=== PATIENT | male | born 1980 | race Caucasian/White ===

== ENCOUNTER 2023-10-19 07:24 | Outpatient (CLI) | payer MEDICAID, SELFPAY ==
--- NOTE | 2023-10-19 07:15 | RT.EKG_ITS ---
APPROVED REPORT Exam: Resting ECG Reason for Exam: [employer] USE MEDICATION Patient Location: O HR:69 bpm ECG Measurements Heart Rate 69 AXIS AR 154 P 73 QRSd 109 QRS 58 QT 429 T 68 QTc 460 Conclusion Sinus rhythm...normal P axis, V-rate 50- 99 Left atrial enlargement...P, P'>60mS, <-0.15mV V1 I have reviewed and interpreted ECG and agree with software generated interpretation.
== END 2023-10-19 07:25 | disposition home or self-care (01) ==
LOC: CARDOPNVT 07:24
PROVIDERS: Visit Provider Family Medicine
DX: Z79.899 Other long term (current) drug therapy (principal)
CPT/HCPCS: 93005; 93010

== ENCOUNTER → 2024-01-18 04:54 | Outpatient (CLI) | payer MEDICAID, SELFPAY ==
--- NOTE | 2024-01-18 | DI.US_ITS ---
Exam(s) US LOWER EXTREMITY VENOUS LT EXAM: US LOWER EXTREMITY VENOUS LT CLINICAL HISTORY: Pain in lt lower leg, ? DVT TECHNIQUE: Grayscale, color, and doppler imaging of the deep venous system of the left lower extremi ty was performed. COMPARISON: No exams were available for comparison FINDINGS: There is no evidence of intraluminal thrombus and there is normal compression and augmentation demons trated within the common femoral vein, femoral vein, and popliteal vein. In the ipsilateral calf the interrogated veins also exhibit normal compression/ augmentation properti es. The ipsilateral saphenofemoral junction is patent. IMPRESSION: 1. No evidence of DVT in the left lower extremity. DATA REPOSITORY:
== END ==
PROVIDERS: Visit Provider Physician Assistant Medical
DX: M79.662 Pain in left lower leg (principal)
CPT/HCPCS: 93971

== ENCOUNTER 2024-04-25 07:33 | Emergency (ER) | payer MEDICAID, SELFPAY ==
[2024-04-25 07:37] VITALS: BP 112/80; PULSE 67; RESP 16; TEMP 36.5; O2SAT 97
--- NOTE | 2024-04-25 07:52 | W.ED.GENAD ---
Discharge Plan Disposition Patient Disposition: Home Discharge Details Clinical Impression: Headache Primary Care Provider: Unknown,Unknown ED Provider: Melo Velazco Home Meds and New Rx's Prescriptions: No Action methadone 10 mg/5 mL solution 160 mg PO DAILY Patient Comments: @ [facility], self reported not verified Excedrin Migraine 250-250-65 mg tablet 2 tab PO Q6H PRN Discharge Instructions Instructions: Headache, Adult ED Additional Instructions: make sure to drink lots of water can take motrin in additional to the excedrin migraine. try not to take these medicines more than 3 days per week. if you have persistent headaches you can try over the counter MAGNESIUM OXIDE daily return to ED if you have severe headache, fever, neck pain Stand Alone Forms: Work Release HPI General Date/Time Provider Initiated Documentation: 04/25/24 07:48. Limitations to Documentation: no limitations. Information obtained by: patient. HPI Narrative: 43-year-old gentleman with past medical history of opiate use disorder presents for evaluation of headaches. He reports that he has been having headache for the last 6 days. Reports that it feels like pressure behind his eyes and sinus pressure. Mild nausea with no vomiting. No fever. Denies any neck stiffness. Reports that he does have some sensitivity to light. No issues with sound. Reports occasional prior headaches, no significant history of severe migraines. Does report a family history of migraine headaches. Related Data Home Medications ?Medication ?Instructions ?Recorded ?Confirmed tytxwqy-xbevrekvtdhpk-[id number] 250 2 tab PO Q6H PRN 04/25/24 04/25/24 mg-250 mg-65 mg tablet (Excedrin Migraine) methadone 10 mg/5 mL oral solution 160 mg PO DAILY 04/25/24 04/25/24 Allergies Allergy/AdvReac Type Severity Reaction Status Date / Time codeine Allergy Swelling/Ed Verified 04/25/24 07:39 elsy latex Allergy Skin Rash Verified 04/25/24 07:39 General Stated Complaint: Headache KIMBERLYN: 3 Exam Narrative Exam Narrative: Review of Systems: All systems reviewed & are unremarkable except as noted in HPI and below Well-developed, no acute distress NCAT PERRL, normal conjunctiva , extraocular movements intact Posterior oropharynx without erythema tonsillar enlargement or exudate No significant cervical adenopathy No meningeal symptoms RRR no murmur Unlabored respiratory effort clear bilaterally Nondistended abdomen Extremities w/o deformity, no cyanosis, no edema No rashes or lesions. no focal neurologic deficits normal sensation and strength throughout, normal gait Appropriate mood and affect Course Vital Signs Vital signs: Vital Signs Temperature 36.5 C 04/25/24 07:37 Pulse 67 04/25/24 07:37 Respiratory Rate 16 04/25/24 07:37 Blood Pressure 112/80 04/25/24 07:37 Pulse Oximetry 97 04/25/24 07:37 Temperature 36.5 C 04/25/24 07:37 Temperature Source Skin 04/25/24 07:37 Pulse 67 04/25/24 07:37 Respiratory Rate 16 04/25/24 07:37 Respiratory Effort Normal, Non-Labored 04/25/24 07:40 Blood Pressure 112/80 04/25/24 07:37 Blood Pressure Position Sitting 04/25/24 07:37 Pulse Oximetry 97 04/25/24 07:37 Oxygen Delivery Method Room Air 04/25/24 07:37 Oxygen Flow Rate 0 04/25/24 07:37 Pain Level 7 04/25/24 07:37 Medical Decision Making Emergent evaluation of headache. Headache is atraumatic, not acute onset, not severe. Has been improving with Excedrin, but it is caused him to miss several days of work. He is requesting a work note for the last week. He does not have any meningeal signs or concerns for infectious etiology thus this was considered especially given his history of polysubstance intravenous drug use. Given his normal neurologic exam and minimal symptoms at this time, I do not feel that any head imaging is indicated. He has no concerning URI symptoms or febrile illness. The patient was given IV fluids and medications and reports symptom improvement, on reevaluation the patient was sitting, sunglasses off lights on and watching a show on his telephone. At this time I feel he can be discharged in good condition. Return precautions advised. Work note provided. Medical Records Medical records reviewed: Yes I reviewed the patient's medical records. Quality:[facility] Health Related Social Needs: No Data to Display PFSH All Active Problems (Updated 04/25/24 @ 08:56 by Melo Velazco MD) Headache (Acute) Social History Smoking/Tobacco Use Status: Current every day Tobacco Type: e-cigarettes Smoking risk assessment performed?: Yes Alcohol Intake: never Substance use type: former substance user Details: on methadone through [facility] Do you feel safe at home: Yes Do you feel safe in your relationship?: Yes
[2024-04-25] MEDS: Prochlorperazine 10 MG/2 ML VIAL 5 MG IVP (08:30)
[2024-04-25] MEDS: Ketorolac 15 MG/ML VIAL 10 MG IVP (08:30)
[2024-04-25] MEDS: Normal Saline 1,000 ML 1000 ML IV (08:38)
[2024-04-25 10:31] VITALS: BP 136/88; PULSE 88; RESP 18; TEMP 36.8; O2SAT 98
== END 2024-04-25 10:35 | disposition home or self-care (01) ==
PROVIDERS: Emergency Provider Emergency Medicine
DX: R51.9 Headache, unspecified (principal); F17.290 Nicotine dependence, other tobacco product, uncomplicated
CPT/HCPCS: 96374; 96375; 99284; 99283; J0780; J1885

== ENCOUNTER 2024-07-18 10:44 | Emergency (ER) | payer MEDICAID, SELFPAY ==
[2024-07-18 10:46] VITALS: BP 116/81; PULSE 98; RESP 14; TEMP 36.2; O2SAT 96
--- NOTE | 2024-07-18 13:31 | ED.GENADUL_ITS ---
Discharge Plan Disposition Patient Disposition: Home Condition: Stable Discharge Details Clinical Impression: Sinusitis, acute frontal Primary Care Provider: None,None ED Provider: Bassem Baptiste Home Meds and New Rx's Prescriptions: New amoxicillin-pot clavulanate 875-125 mg tablet 1 tab PO BID Qty: 14 0RF Continued methadone 10 mg/5 mL solution 190 mg PO DAILY Patient Comments: @ [facility], self reported not verified Excedrin Migraine 250-250-65 mg tablet 2 tab PO Q6H PRN Discharge Instructions Instructions: Sinusitis, Adult ED Additional Instructions: Please drink plenty of fluids to stay hydrated and allow for plenty of rest. Take full course of antibiotic as prescribed. Please contact your primary care physician to arrange follow-up. Return to the ER immediately for any worsening or new concerning symptoms. Stand Alone Forms: Work Release Discharge Data Discharge Date/Time-TO BE ENTERED AT DEPARTURE: 07/18/24 14:06 HPI General Mode of arrival: ambulatory . Date/Time Provider Initiated Documentation: 07/18/24 10:49 . Limitations to Documentation: no limitations . Information obtained by: patient . HPI Narrative: 43-year-old male here with chief complaint of influenza-like illness. Patient notes fatigue, body aches, sinus pressure over the past few days. He has no associated cough. No chest pain or shortness of breath. He does have mild nausea with no abdominal pain. Related Data Home Medications ?Medication ?Instructions ?Recorded ?Confirmed gevssdw-fonjeyaxellqq-tduxbvsc 250 2 tab PO Q6H PRN 04/25/24 07/18/24 mg-250 mg-65 mg tablet (Excedrin Migraine) methadone 10 mg/5 mL oral solution 190 mg PO DAILY 04/25/24 07/18/24 amoxicillin 875 mg-potassium 1 tab PO BID #14 tabs 07/18/24 clavulanate 125 mg tablet Previous Rx's ?Medication ?Instructions ?Recorded amoxicillin 875 mg-potassium 1 tab PO BID #14 tabs 07/18/24 clavulanate 125 mg tablet Allergies Allergy/AdvReac Type Severity Reaction Status Date / Time codeine Allergy Swelling/Ed Verified 07/18/24 10:48 elsy latex Allergy Skin Rash Verified 07/18/24 10:48 General Stated Complaint: [employer]Medical KIMBERLYN: 4 Review of Systems All systems reviewed & are unremarkable except as noted in HPI and below Exam Const General: cooperative and no acute distress [facility] General nose exam: nares normal Face and sinus: face symmetric and sinus tenderness frontal Mouth: moist mucous membranes Throat: posterior oropharynx normal and uvula midline Eyes Conjunctivae: normal conjunctivae Sclera: normal sclerae Neck Neck: trachea midline and supple Resp Auscultation: clear to auscultation bilaterally, no rales, no rhonchi and no wheezes Cardio Rate: regular rate and not tachycardic Rhythm: regular rhythm GI Palpation: soft, not firm, no guarding, no masses, not rigid and nontender Skin General skin exam: no rashes or lesions noted Neuro General: patient alert, patient awake and tone normal Psych Appearance: grossly normal Mental Status: mental status grossly normal Course Vital Signs Vital signs: Vital Signs Temperature 36.2 C L 07/18/24 10:46 Pulse 98 H 07/18/24 10:46 Respiratory Rate 14 07/18/24 10:46 Blood Pressure 116/81 07/18/24 10:46 Pulse Oximetry 96 07/18/24 10:46 Temperature 36.2 C L 07/18/24 10:46 Temperature Source Oral 07/18/24 10:46 Pulse 98 H 07/18/24 10:46 Respiratory Rate 14 07/18/24 10:46 Blood Pressure 116/81 07/18/24 10:46 Blood Pressure Position Sitting 07/18/24 10:46 Pulse Oximetry 96 07/18/24 10:46 Oxygen Delivery Method Room Air 07/18/24 10:46 Oxygen Flow Rate 0 07/18/24 10:46 Pain Level 6 07/18/24 10:46 Medical Decision Making 43-year-old male here with flulike illness with sinus congestion and pain. Patient is hemodynamically stable. Rapid flu/influenza testing negative. Given frontal sinus tenderness, I am concerned about acute sinusitis. Plan to initiate antibiotic coverage with Augmentin. Usual and customary discharge instructions were reviewed with the patient. Quality:SDOH Health Related Social Needs: No Data to Display PFSH All Active Problems Sinusitis, acute frontal (Acute) Social History Smoking/Tobacco Use Status: Current every day Tobacco Type: e-cigarettes Smoking risk assessment performed?: Yes Alcohol Intake: never Substance use type: former substance user Details: on methadone through [facility] Do you feel safe at home: Yes Do you feel safe in your relationship?: Yes
[2024-07-18] MEDS: Acetaminophen 500 MG TAB PO (13:58)
[2024-07-18] MEDS: Ibuprofen 400 MG TAB PO (13:58)
[2024-07-18 13:59] VITALS: BP 125/78; PULSE 68; TEMP 37.1; O2SAT 98
--- NOTE | 2024-07-21 08:01 | NUR.NOTE ---
Nursing Note: Patient had a question about the work note that Dr. Baptiste wrote
== END 2024-07-18 14:06 | disposition home or self-care (01) ==
PROVIDERS: Emergency Provider Student in an Organized Health Care Education/Training Program
DX: J01.10 Acute frontal sinusitis, unspecified (principal); R53.83 Other fatigue; R52 Pain, unspecified; R11.0 Nausea
CPT/HCPCS: 99283